=== PATIENT | female | born 1990 ===

== ENCOUNTER 2017-09-17 10:41 | Inpatient (IN) | payer MEDICAID, SELFPAY ==
[2017-09-17 19:41] VITALS: BMI 30.1
[2017-09-17] MEDS ORDERED: Lactated Ringer's 1,000 ML IV ONE (19:43)
[2017-09-17 21:58] LABS: BASO % 0.4 % (0.0-2.0); EOS # 0.2 K/uL (0.0-0.7); EOS % 2.6 % (0.0-4.0); HEMOGLOBIN 11.9 g/dL (12.0-16.0); LYMPH % 25.1 % (20.0-40.0); MEAN CELL VOLUME 94.1 fl (81.0-99.0); MEAN CORPUSCULAR HEMOGLOBIN 31.7 pg (27.0-31.0); MEAN CORPUSCULAR HGB CONC 33.7 g/dL (33.0-37.0); MEAN PLATELET VOLUME 10.6 fl (7.2-11.7); MONO # 0.7 K/uL (0.0-0.8); MONO % 9.3 % (0.0-10.0); NEUT % 62.6 % (50.0-75.0); NRBC % 0.1 % (0.0-0.0); RBC 3.74 Mil/uL (3.80-5.20); RED CELL DISTRIBUTION WIDTH 14.3 % (11.5-14.5)
[2017-09-18] MEDS ORDERED: Oxytocin 30 units/LR 500ML 30 U/500 ML BAG IV ONE ×2 (00:06→06:19)
[2017-09-18] MEDS ORDERED: Lidocaine 1% Inj (20ml) ONE (04:32)
[2017-09-18] MEDS: Lactated Ringer's 1,000 ML IV SCH ×2 (04:50→09:30)
[2017-09-18] MEDS ORDERED: Fentanyl/Bupivacaine HCl 250 ML EPI ONE ×2 (08:54→09:27)
--- NOTE | 2017-09-18 14:01 | OBADHP ---
Datetime: 09/17/2017 20:57 Admit Comment, IP Provider: BREA: 09/24/2017 LMP:12/02/2016 PNP: [facility]- Dr. Santamaria Last visit: 09/16/2017 27 y/o at 39 wks based on first u/s performed on 02/27/2017 is presenting for induction. Feta l movement appreciated. Patient denied any complications during the . No vaginal bleeding, contractions or loss of fluid. OBGYNhx: 12/30/2004, , F 07/24/2007, , F 02/22/2016, , B Patient denied any complications during these pregnancies PMH: none Familyhx: none Socialhx: no tobacco, EtOH or drug Surghx: none Allergies: none Meds: vitamins ROS: denies dizziness, headache, blurred vision, cp, sob, n/v/d or dyusria PE: well-appearing female Cardio:s1s2, no murmurs Abd:BS+ Vacm dilated Ext: nontender A/P: 27 y/o at 39 wks based on first u/s performed on 02/27/2017 is presenting for induction due to IUGR. 1. Admitted patient to the unit with FHR monitoring. 2. Will continue to observe patient. No need for cervidil (2.5cm dilated) 3. Cytotec to be given at 12am, followed by pitocin at 5am. Case discussed with Dr. Jalen Morejon PGY-1 The patient was seen with the resident I agree with the note Extremities - PN: Normal Abdomen - PN: Normal Heart - PN: Normal General - PN: Normal FHR - Baseline A Provider: 150 Vital Signs Provider: Reviewed IP Chief Complaint: Other IP Adm Impression: Term, intrauterine IP Admit Plan: Admit to unit
--- NOTE | 2017-09-18 14:04 | OBDS ---
DELIVERY PERSONNEL Delivery Doctor: Dede Rao MD Pourer Crane Ladle: HirolavernNisreen harmon RN MATERNAL INFORMATION Delivery Anesthesia: Epidural Maternal Complications: None Provider Comments: Patient is a had a baby boy Baby was bulb suctioned doing well 3 vessels noted cord blood collected Placenta delivered at 1:45pm EBL 100 cc No lacerations mom tolerated procedure well 9/9 LABOR SUMMARY EDC: 09/24/2017 00:00 No. Babies in Womb: 1 Attempted: No Labor Anesthesia: Epidural LABOR INFORMATION Reason for Induction: Intrauterine Growth Retardation Onset of Labor: 09/18/2017 08:55 Complete Dilatation: 09/18/2017 12:56 Cervical Ripening Agents: Cytotec @ 50 MCG Oxytocin: Induction Group B Beta Strep: Negative Antibiotics # of Doses: 0 Antibiotics Time of Last Dose: 0 Steroids Given: None Reason Steroids Not Administered: Not Applicable [facility]ES Membranes Rupture Method: Artificial Rupture of Membranes: 09/18/2017 13:40 Length of Rupture (hrs): 0.00 Amniotic Fluid Color: Clear Amniotic Fluid Amount: Large Amniotic Fluid Odor: Normal STAGES OF LABOR Stage 1 hrs: 4 Stage 1 min: 1 Stage 2 hrs: 0 Stage 2 min: 44 Stage 3 hrs: 0 Stage 3 min: 5 Total Time in Labor hrs: 4 Total Time in Labor min: 50 VAGINAL DELIVERY Episiotomy: None Laceration Extension: N/A Laceration Type: None Laceration Repair: Not Applicable Initial Vag Sponge Count: 0 Final Vag Sponge Count: 0 Initial Vag Sharps Count: 0 Final Vag Sharps Count: 00 Sponge Count Correct: N/A Sharps Count Correct: N/A BABY A INFORMATION Delivery Date/Time: 09/18/2017 13:40 Method of Delivery: Vaginal Born in Route : No : N/A Forceps: N/A Vacuum Extraction: N/A Shoulder Dystocia : No SHOULDER DYSTOCIA BABY A Delivery Date/Time: 09/18/2017 13:40 PRESENTATION/POSITION BABY A Presentation: Cephalic Cephalic Presentation: Vertex Breech Presentation: N/A PLACENTA INFORMATION BABY A Placenta Delivery Time : 09/18/2017 13:45 Placenta Method of Delivery: Spontaneous Placenta Status: Delivered SCORES BABY A Heart Rate 1 min: >100 bpm Resp Effort 1 min: Good Cry Reflex Irritability 1 min: Cough or Sneeze or Pulls Away Muscle Tone 1 min: Active Motion Color 1 min: Body [place], Extremities Blue SCORE 1 MIN: 9 Heart Rate 5 min: >100 bpm Resp Effort 5 min: Good Cry Reflex Irritability 5 min: Cough or Sneeze or Pulls Away Muscle Tone 5 min: Active Motion Color 5 min: Body [place], Extremities Blue SCORE 5 MIN: 9 INFANT INFORMATION BABY A Gestational Age at Delivery: 39.1 Gestational Status: Term Infant Outcome : Liveborn Infant Condition : Stable Infant Sex: Male IDENTIFICATION/MEDS BABY A ID Band Number: [id number] ID Band Location: Left Leg; Left Arm WEIGHT/LENGTH BABY A Birthweight (gms): 2900 Weight (lb): 6 Weight (oz): 6 CORD INFORMATION BABY A No. Cord Vessels: 3 Nuchal Cord : N/A Nuchal Cord Other: 0 True Knot: 0 Cord Blood Taken: Yes Infant Suction: Mouth; Nose
--- NOTE | 2017-09-18 16:48 | OBHP ---
Datetime: 09/17/2017 20:57 IP Adm Impression: Term, intrauterine IP Admit Plan: Admit to unit Admit Comment, IP Provider: BREA: 09/24/2017 LMP:12/02/2016 [facility] Last visit: 09/16/2017 27 y/o at 39 wks based on first u/s performed on 02/27/2017 is presenting for induction. Feta l movement appreciated. Patient denied any complications during the . No vaginal bleeding, contractions or loss of fluid. OBGYNhx: 12/30/2004, , F 07/24/2007, , F 02/22/2016, , B Patient denied any complications during these pregnancies PMH: none Familyhx: none Socialhx: no tobacco, EtOH or drug Surghx: none Allergies: none Meds: vitamins ROS: denies dizziness, headache, blurred vision, cp, sob, n/v/d or dyusria PE: well-appearing female Cardio:s1s2, no murmurs Abd:BS+ Vacm dilated Ext: nontender A/P: 27 y/o at 39 wks based on first u/s performed on 02/27/2017 is presenting for induction due to IUGR. 1. Admitted patient to the unit with FHR monitoring. 2. Will continue to observe patient. No need for cervidil (2.5cm dilated) 3. Cytotec to be given at 12am, followed by pitocin at 5am. Case discussed with Dr. Jalen Morejon PGY-1 The patient was seen with the resident I agree with the note Extremities - PN: Normal Abdomen - PN: Normal Heart - PN: Normal General - PN: Normal FHR - Baseline A Provider: 150 Vital Signs Provider: Reviewed IP Chief Complaint: Other
[2017-09-19 06:20] LABS: BASO % 0.2 % (0.0-2.0); EOS # 0.2 K/uL (0.0-0.7); EOS % 1.8 % (0.0-4.0); HEMOGLOBIN 12.4 g/dL (12.0-16.0); LYMPH # 2.8 K/uL (1.0-4.3); LYMPH % 27.9 % (20.0-40.0); MEAN CELL VOLUME 93.2 fl (81.0-99.0); MEAN CORPUSCULAR HEMOGLOBIN 31.8 pg (27.0-31.0); MEAN CORPUSCULAR HGB CONC 34.1 g/dL (33.0-37.0); MEAN PLATELET VOLUME 9.9 fl (7.2-11.7); MONO # 0.9 K/uL (0.0-0.8); MONO % 9.3 % (0.0-10.0); NEUT % 60.8 % (50.0-75.0); RBC 3.91 Mil/uL (3.80-5.20); RED CELL DISTRIBUTION WIDTH 14.2 % (11.5-14.5); WHITE BLOOD COUNT 9.9 K/uL (4.8-10.8)
--- NOTE | 2017-09-19 10:22 | OBPPN ---
Datetime: 09/19/2017 07:14 PP Flatus Prov: Yes PP BM Prov: No PP Heart Prov: Normal PP Lungs Prov: Normal PP Abdomen/Uterus Prov: Normal PP Lochia Prov: Normal PP Extremities Prov: Normal PP Impression Prov: Normal progression PP Plan Prov: Continue present management PP Progress Note Prov: s/p ppd1 now p4 doing well, ambulating, tolerating po, no fever/n/v/pain declined circ w/o any issues desires nexplanon anticipate DC home tomorrow Vital Signs Provider PP: Reviewed; Within Normal Limits Datetime: 09/19/2017 07:08 PP Pain Prov: Within normal limits PP Nausea Prov: Denies
--- NOTE | 2017-09-20 07:19 | OBPPN ---
Datetime: 09/20/2017 07:16 PP Pain Prov: Within normal limits PP Abdomen/Uterus Prov: Normal PP Lochia Prov: Normal PP Extremities Prov: Normal PP Impression Prov: Normal progression PP Plan Prov: Discharge PP Progress Note Prov: PPD 2, s/p , doing well, breast and bottle feeding Rx motrin Discharge home today Vital Signs Provider PP: Reviewed
--- NOTE | 2017-09-20 07:19 | OBDCSUM ---
Datetime: 09/20/2017 07:18 Discharged to, Provider: Home Follow up at, Provider: [facility] Discharge Instructions, Provider: Routine instructions given Discharge Diagnosis, Provider: Term Delivered Discharge Time: 09/20/2017 07:18 Follow up in weeks, Provider: 6 weeks Datetime: 09/19/2017 21:53 Discharged to, Provider: Home Follow up at, Provider: Dr. Santamaria Disch Instr Activity: May be up to bathroom; May be up for meals; May Shower Disch Instr Diet: Regular Discharge Instructions, Provider: Routine instructions given Discharge Diagnosis, Provider: Term Delivered Discharge Time: 09/20/2017 10:00 Follow up in weeks, Provider: Oct 28 Disch Activity Restrictions: No lifting; Minimize walking; Minimize stair-climbing; Nothing in vagin a - [place], tampons, douche Discharge Comment, Provider: 1. Please continue . 2. Ibuprofen as needed for moderate pain. 3. Continue walking as much as tolerated. 4. Please plan follow up visit in 3-7 days with push connector assembler. 5. Please see your doctor in 6 weeks. 6. No heavy lifting or anything in the vagina for 6 weeks. 7. Please avoid stairs if possible. 8. If you develop severe or worsening pain, please go to the ED. Contraception after Delivery: Control Pill/Patch
[2017-09-20] MEDS ORDERED: Measles, Mumps, and Rubella 0.5 ML VIAL SC ONE (11:00)
[2017-09-20 18:43] VITALS: BP 99/68; PULSE 70; RESP 20; TEMP 98.2; O2SAT 99
== END 2017-09-20 13:54 | disposition home or self-care (01) | DRG 775 ==
LOC: H.L&D 19:41 → H.OB/GYN 09-18 17:25
PROVIDERS: ADMIT Obstetrics & Gynecology; ATTEND Obstetrics & Gynecology
PROC: 10E0XZZ Delivery of Products of Conception, External Approach (ICD-10-PCS; principal; 2017-09-17)
PROC: 4A1HXCZ Monitoring of Products of Conception, Cardiac Rate, External Approach (ICD-10-PCS; 2017-09-17)
DX: O69.81X0 Labor and delivery complicated by cord around neck, without compression, not applicable or unspecified (principal); Z37.0 Single live birth; O36.5930 Maternal care for other known or suspected poor fetal growth, third trimester, not applicable or unspecified; Z3A.39 39 weeks gestation of pregnancy